=== PATIENT | female | born 1970 ===

== ENCOUNTER → 2018-03-18 21:16 | Outpatient (REF) | payer OTHER, SELFPAY ==
[2018-03-18 21:39] LABS: Add Manual Diff / Slide Review NO; Basophils Percent Auto 0.6 % (0-2); Eosinophils Percent Auto 1.4 % (2-4); Hematocrit 37.6 % (36-46); Hemoglobin 11.8 g/dL (12.0-16.0); Lymphocytes Percent Auto 24.8 % (25-40); Mean Corpuscular HGB Conc 31.4 % (30-36); Mean Corpuscular Hemoglobin 21.6 PG (26-34); Mean Corpuscular Volume 68.7 fL (80-100); Monocytes Percent Auto 6.1 % (3-14); Neutrophils Absolute Auto 5300 /uL (1500-7000); Neutrophils Percent Auto 67.1 % (50-75); Platelet Count 256 X10^3/uL (150-400); Red Blood Cell Count 5.46 X10^6/uL (4.0-5.2); Red Cell Distribution Width 14.2 % (11.6-14.8); White Blood Cell Count 7.9 X10^3/uL (4.5-11.0)
[2018-03-18 22:00] LABS: Hypochromasia 1+; Microcytosis 2+
[2018-03-18 23:28] LABS: Total Iron Binding Capacity 323 ug/dL (265-497)
[2018-03-19 00:28] LABS: Folate > 20.0 ng/mL (2.76-20.0); Vitamin B12 821 pg/mL (239-931)
== END ==
LOC: LAB 21:16
PROVIDERS: Visit Provider Naturopath
DX: Z13.0 Encounter for screening for diseases of the blood and blood-forming organs and certain disorders involving the immune mechanism (principal)
CPT/HCPCS: 36415; 82607; 82746; 83550; 85025